=== PATIENT | female | born 1995 | race Caucasian/White ===

== ENCOUNTER 2019-04-20 13:20 | Emergency (ER) | payer OTHER ==
[~2019-04-20] VITALS: Wt 66.0 kg
[~2019-04-20 13:20] MED LIST: ONDA4TAB35 PO; PRENAT PO
[2019-04-20 13:24] VITALS: BP 123/57; PULSE 85; RESP 18
--- NOTE | 2019-04-20 21:30 | ERD ---
ER Documentation Chief Complaint Chief Complaint VAG BLEEDING SINCE TODAY. EARLY . NO DISTRESS. NO N/V. HPI 24-year-old female who is G2, , last menstrual cycle of 12/02/2018 presenting to the emergency department complaining of vaginal bleeding which began this morning. She reports using 1 pad per day. She also reports pelvic cramping which is rated 2/10 in severity and intermittent. She denies any fevers, chills, abdominal pain, nausea, vomiting, or other symptoms at this time. ROS All systems reviewed and are negative except as per history of present illness. Medications Home Meds Active Scripts Multivit/Min/Fol Ac/Iron/Pren* ( S*) 1 Tab Tab, 1 TAB PO DAILY, #30 TAB Prov:MAYRA DAVE PA-C 04/10/16 Ondansetron Hcl* (Zofran* ODT) 4 mg -ODT Tab.disper, 4 MG PO Q6 PRN for NAUSEA AND/OR VOMITING, #30 TAB Prov:MAYRA DAVE PA-C 04/10/16 Allergies Allergies: Coded Allergies: No Known Allergy (Unverified , 04/20/19) PMhx/Soc Medical and Surgical Hx: pt denies Medical Hx, pt denies Surgical Hx Hx Alcohol Use: No Hx Substance Use: No Hx Tobacco Use: No Smoking Status: Never smoker FmHx Family History: No diabetes Physical Exam Vitals Vital Signs Date Temp Pulse Resp B/P (MAP) Pulse Ox O2 O2 Flow FiO2 Time Delivery Rate 04/20/19 98.2 85 18 123/57 98 13:24 (79) Physical Exam Const: No acute distress Head: Atraumatic Eyes: Normal Conjunctiva ENT: Normal External Ears, Nose and Mouth. Neck: Full range of motion. No meningismus. Resp: Clear to auscultation bilaterally Cardio: Regular rate and rhythm, no murmurs Abd: Soft, non tender, non distended. Normal bowel sounds. Mild subjective suprapubic tenderness palpation. No McBurney's point tenderness. No rebound tenderness or guarding. Skin: No petechiae or rashes Back: No midline or flank tenderness Ext: No cyanosis, or edema Neur: Awake and alert Psych: Normal Mood and Affect Result Diagram: 04/20/19 1438 04/20/19 1438 Results 24 hrs Laboratory Tests Test 04/20/19 14:18 04/20/19 14:38 Urine Color YELLOW Urine Clarity SLIGHTLY CLOUDY Urine pH 5.0 Urine Specific [place] 1.021 Urine Ketones NEGATIVE mg/dL Urine Nitrite NEGATIVE mg/dL Urine Bilirubin NEGATIVE mg/dL Urine Urobilinogen NEGATIVE mg/dL Urine Leukocyte Esterase NEGATIVE Migue/ul Urine Microscopic RBC 1 /HPF Urine Microscopic WBC 4 /HPF Urine Squamous Epithelial Cells FEW /HPF Urine Hemoglobin 3+ mg/dL Urine Glucose NEGATIVE mg/dL Urine Total Protein NEGATIVE mg/dl White Blood Count 11.9 10^3/ul Red Blood Count 4.77 10^6/ul Hemoglobin 8.9 g/dl Hematocrit 30.2 % Mean Corpuscular Volume 63.3 fl Mean Corpuscular Hemoglobin 18.7 pg Mean Corpuscular Hemoglobin Concent 29.5 g/dl Red Cell Distribution Width 19.9 % Platelet Count 345 10^3/UL Mean Platelet Volume 9.8 fl Immature Granulocytes % 0.300 % Neutrophils % 55.2 % Lymphocytes % 34.9 % Monocytes % 8.3 % Eosinophils % 0.7 % Basophils % 0.6 % Nucleated Red Blood Cells % 0.0 /100WBC Immature Granulocytes # 0.040 10^3/ul Neutrophils # 6.6 10^3/ul Lymphocytes # 4.1 10^3/ul Monocytes # 1.0 10^3/ul Eosinophils # 0.1 10^3/ul Basophils # 0.1 10^3/ul Nucleated Red Blood Cells # 0.0 10^3/ul Sodium Level 139 mmol/L Potassium Level 3.6 mmol/L Chloride Level 106 mmol/L Carbon Dioxide Level 24 mmol/L Anion Gap 9 Blood Urea Nitrogen 11 mg/dl Creatinine 0.50 mg/dl Est Glomerular Filtrat Rate mL/min > 60 mL/min Glucose Level 78 mg/dl Calcium Level 9.2 mg/dl Total Bilirubin 0.5 mg/dl Direct Bilirubin 0.00 mg/dl Indirect Bilirubin 0.5 mg/dl Aspartate Amino Transf (AST/SGOT) 23 IU/L Alanine Aminotransferase (ALT/SGPT) 25 IU/L Alkaline Phosphatase 69 IU/L Total Protein 7.9 g/dl Albumin 4.2 g/dl Globulin 3.70 g/dl Albumin/Globulin Ratio 1.13 Beta HCG, Quantitative 2291.4 mIU/ml [place] [id number] Radiology Main Line: [phone] DIAGNOSTIC IMAGING REPORT Patient: FAHAD SAINZ : 1995 Age: 24 Sex: F MR #: [id number] DOS: 04/20/19 1435 Ordering MD: ADINA MENDOZA PA-C Location: [facility] Room/Bed: PROCEDURE: US OB. CLINICAL INDICATION: Vaginal bleeding TECHNIQUE: Transabdominal and transvaginal views of the pelvis are available for review. COMPARISON: No prior studies are available for comparison. FINDINGS: There is a single intrauterine gestation with the crown-rump length measuring 0.4 cm, corresponding to a gestational age of 6 weeks and 1 day. The heart rate is noted at 119 bpm. The ovaries are normal in size and echogenicity. Normal Doppler flow is identified in both ovaries. The right ovary measures 3.1 x 1.4 x 2.6 cm. The left ovary measures 4.0 x 1.5 x 2.0 cm. There is a 1.8 cm corpus luteum cyst in the left ovary. There is no free fluid. RPTAT: AA IMPRESSION: Single live intrauterine with an estimated gestational age of 6 weeks and 1 day, based on ultrasound measurements. Small corpus luteum cyst in the left ovary. .Chip Green MD, MD Date Time Electronically viewed and signed by .Chip Green MD, MD on 04/20/2019 15:55 .S/ CC: ADINA MENDOZA PA-C [id number] Procedures/MDM 24-year-old female presents to the emergency department complaining of mild vaginal spotting and pelvic discomfort. Obstetrics ultrasound showed a live intrauterine with heart tones present. Beta hCG was consistent with term of . Urinalysis showed no evidence of urinary tract infection. 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 She was in agreement with the diagnosis, plan, need for follow-up, return precautions. Her questions and concerns were addressed prior to discharge. Departure Diagnosis: Primary Impression: Vaginal bleeding in patient at less than 20 weeks ges... Condition: Fair Patient Instructions: Bleeding During Early Additional Instructions: SPECIALIST: YOU HAVE A MEDICAL CONDITION WHICH REQUIRES YOU TO SEE A SPECIALIST WITHIN THE NEXT 1-2 DAYS. PLEASE FOLLOW UP WITH YOUR PRIMARY PHYSICIAN FOR REFFERAL.IF YOU DO NOT HAVE A PRIMARY CARE PHYSICIAN AND/OR YOU CAN NOT AFFORD TO SEE A PHYSICIAN THE FOLLOWING RESOURCES HAVE BEEN SUPPLIED TO YOU. IT IS YOUR RESPONSIBILITY TO BE SEEN BY THE SPECIALIST: ADINA MILLER PA-C Apr 20, 2019 21:30
== END 2019-04-20 16:57 | disposition home or self-care (01) ==
LOC: FTE 13:20
DX: O20.9 Hemorrhage in early pregnancy, unspecified (principal); R10.2 Pelvic and perineal pain; Z3A.01 Less than 8 weeks gestation of pregnancy
CPT/HCPCS: 36415; 76801; 76817; 80053; 81001; 84702; 85025; 86900; 86901; Z7502

== ENCOUNTER 2019-04-27 15:49 | Emergency (ER) | payer OTHER ==
[~2019-04-27] VITALS: Ht 149.9 cm; Wt 70.8 kg
[2019-04-27 15:54] VITALS: Ht 149.9 cm; Wt 70.8 kg
[2019-04-27] MEDS ORDERED: DOCU-144 PO (19:59)
[2019-04-27] MEDS ORDERED: FER325 PO (19:59)
[2019-04-27 20:29] VITALS: BP 133/93; PULSE 68; RESP 16
--- NOTE | 2019-04-27 21:33 | ERD ---
ER Documentation Chief Complaint Chief Complaint vaginal bleeding increase seen here last week 7wks preg, HPI History of Present Illness: 24-year-old female who denies a past medical history coming in today with complaint of vaginal bleeding that is increased since her last visit on 04/20/19 at [facility] emergency department. Patient also reporting left lower quadrant abdominal pain. Patient reports increased bleeding on 04/22/2019 that was consistent with her menstrual cycle as well as some clots. Patient reports passing a large clot yesterday the size of the lemon as well as lower abdominal cramping during that time. Patient denies any other associated symptoms. Patient reports using 4-5 pads per day At home pharmacological/nonpharmacological treatment for symptoms: Denies Denies social concerns; Denies recent foreign travel ROS All systems reviewed and are negative except as per history of present illness. Medications Home Meds Active Scripts Docusate Sodium* (Colace*) 100 Mg Capsule, 100 MG PO DAILY for prevent constipation, #30 CAP Prov:GRAYSON MUÑIZ NP 04/27/19 Ferrous Sulfate* (Ferrous Sulfate*) 325 Mg Tabec, 325 MG PO TID for anemia for 30 Days, TAB Prov:GRAYSON MUÑIZ NP 04/27/19 Multivit/Min/Fol Ac/Iron/Pren* ( S*) 1 Tab Tab, 1 TAB PO DAILY, #30 TAB Prov:MAYRA DAVE PA-C 04/10/16 Ondansetron Hcl* (Zofran* ODT) 4 mg -ODT Tab.disper, 4 MG PO Q6 PRN for NAUSEA AND/OR VOMITING, #30 TAB Prov:MAYRA DAVE PA-C 04/10/16 Allergies Allergies: Coded Allergies: No Known Allergy (Unverified , 04/20/19) PMhx/Soc History of Surgery: No Anesthesia Reaction: No Hx Neurological Disorder: No Hx Respiratory Disorders: No Hx Cardiac Disorders: No Hx Psychiatric Problems: No Hx Miscellaneous Medical Probl: No Hx Alcohol Use: No Hx Substance Use: No Hx Tobacco Use: No Smoking Status: Never smoker Physical Exam Vitals Vital Signs Date Temp Pulse Resp B/P (MAP) Pulse Ox O2 O2 Flow FiO2 Time Delivery Rate 04/27/19 98.2 68 16 133/93 98 Room Air 20:29 (106) 04/27/19 99.0 100 18 129/71 98 15:54 (90) Physical Exam Const: No acute distress Head: Atraumatic Eyes: Normal Conjunctiva ENT: Normal External Ears, Nose and Mouth. Neck: Full range of motion. No meningismus. Resp: Clear to auscultation bilaterally Cardio: Regular rate and rhythm, no murmurs Abd: Soft, suprapubic tenderness, non distended. Normal bowel sounds Skin: No petechiae or rashes Back: No midline or flank tenderness Ext: No cyanosis, or edema Neur: Awake and alert Psych: Normal Mood and Affect Vaginal exam deferred, patient refused Result Diagram: 04/27/19 1740 Results 24 hrs Laboratory Tests Test 04/27/19 17:35 04/27/19 17:40 Urine Color YELLOW Urine Clarity SLIGHTLY CLOUDY Urine pH 5.0 Urine Specific [place] 1.030 Urine Ketones NEGATIVE mg/dL Urine Nitrite NEGATIVE mg/dL Urine Bilirubin NEGATIVE mg/dL Urine Urobilinogen NEGATIVE mg/dL Urine Leukocyte Esterase NEGATIVE Migue/ul Urine Microscopic RBC > 182 /HPF Urine Microscopic WBC 7 /HPF Urine Squamous Epithelial Cells FEW /HPF Urine Mucus FEW /HPF Urine Hemoglobin 3+ mg/dL Urine Glucose NEGATIVE mg/dL Urine Total Protein NEGATIVE mg/dl White Blood Count 10.7 10^3/ul Red Blood Count 4.72 10^6/ul Hemoglobin 8.9 g/dl Hematocrit 31.0 % Mean Corpuscular Volume 65.7 fl Mean Corpuscular Hemoglobin 18.9 pg Mean Corpuscular Hemoglobin Concent 28.7 g/dl Red Cell Distribution Width 21.3 % Platelet Count 300 10^3/UL Mean Platelet Volume 9.4 fl Immature Granulocytes % 0.300 % Neutrophils % 60.7 % Lymphocytes % 30.6 % Monocytes % 7.0 % Eosinophils % 0.9 % Basophils % 0.5 % Nucleated Red Blood Cells % 0.0 /100WBC Immature Granulocytes # 0.030 10^3/ul Neutrophils # 6.5 10^3/ul Lymphocytes # 3.3 10^3/ul Monocytes # 0.8 10^3/ul Eosinophils # 0.1 10^3/ul Basophils # 0.1 10^3/ul Nucleated Red Blood Cells # 0.0 10^3/ul Beta HCG, Quantitative 516.0 mIU/ml Procedures/MDM ED course includes a thorough examination and history. Medications: Imaging: OB transvaginal and abdominal ultrasound Labs: CBC, Rh, beta quantitative, urinalysis Low suspicion for life-threatening medical emergency. 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 CBC: no e/o of systemic infection; anemia noted with H/H at 8.9/31. Rh is a positive. Beta quantitative is 516. Urinalysis negative for infection; positive for hemoglobin and RBCs likely due to vaginal bleeding. Ultrasound results showing: IMPRESSION: 1. Previously seen intrauterine gestational sac no longer visualized. Findings are compatible with complete . Recommend correlation with serial Beta HCG measurements. 2. Unremarkable ovaries. 3. No free pelvic fluid. RPTAT:HAJM Physician Julio C Date Time Electronically viewed and signed by Physician Julio C on 04/27/2019 18:51 Patient reassessment 2000: Patient hemodynamically stable. Patient emotional and crying and labs and imaging results discussed. Reassurance provided. No respiratory distress, otherwise relatively well appearing and nontoxic. Disposition given. Patient educated on diagnoses, prescriptions, follow-up care, return precautions. Strict return precautions given for worsening condition; questions answered discharge. Nurse at bedside to assist. Patient verbalizes understanding of, results, return precautions, follow-up care. Disposition for discharge with followup in 2 days with PCP/clinic. Departure Diagnosis: Primary Impression: Miscarriage Condition: Stable Patient Instructions: Miscarriage, Spontaneous (Completed) Referrals: COMMUNITY CLINICS YOU HAVE RECEIVED A MEDICAL SCREENING EXAM AND THE RESULTS INDICATE THAT YOU DO NOT HAVE A CONDITION THAT REQUIRES URGENT TREATMENT IN THE EMERGENCY DEPARTMENT. FURTHER EVALUATION AND TREATMENT OF YOUR CONDITION CAN WAIT UNTIL YOU ARE SEEN IN YOUR DOCTORS OFFICE WITHIN THE NEXT 1-2 DAYS. IT IS YOUR RESPONSIBILITY TO MAKE AN APPOINTMENT FOR FOLOW-UP CARE. IF YOU HAVE A PRIMARY DOCTOR --you should call your primary doctor and schedule an appointment IF YOU DO NOT HAVE A PRIMARY DOCTOR YOU CAN CALL OUR PHYSICIAN REFERRAL HOTLINE AT IF YOU CAN NOT AFFORD TO SEE A PHYSICIAN YOU CAN CHOSE FROM THE FOLLOWING [facility] CLINICS [facility] [address] [facility] [address] [facility] [address] [facility]. [facility] [address] [facility] [phone] [facility]. [facility] [phone] [facility]. [facility] [address] [facility]. [facility] YOU HAVE RECEIVED A MEDICAL SCREENING EXAM AND THE RESULTS INDICATE THAT YOU DO NOT HAVE A CONDITION THAT REQUIRES URGENT TREATMENT IN THE EMERGENCY DEPARTMENT. FURTHER EVALUATION AND TREATMENT OF YOUR CONDITION CAN WAIT UNTIL YOU ARE SEEN IN YOUR DOCTORS OFFICE WITHIN THE NEXT 1-2 DAYS. IT IS YOUR RESPONSIBILITY TO MAKE AN APPOINTMENT FOR FOLOW-UP CARE. IF YOU HAVE A PRIMARY DOCTOR --you should call your primary doctor and schedule and appointment IF YOU DO NOT HAVE A PRIMARY DOCTOR YOU CAN CALL OUR PHYSICIAN REFERRAL HOTLINE AT . IF YOU CAN NOT AFFORD TO SEE A PHYSICIAN YOU CAN CHOSE FROM THE FOLLOWING [facility] INSTITUTIONS: [facility] [address] [place] [address] [facility] [address] [place] [address] [facility] [address] [place] [address] [employer] OPEN STACK ADMINISTR[place] [address] [facility] [address] [place], [place] [phone] OFFICE FAX , [place] [address] [place] [address] [address]. MON, [place] [address] [place], [place] [phone] DR JARVIS, [facility] [address] [facility], [address] [address] [address] [address] [place] [place] [phone] [facility] [address] [place] [address] [address] [facility] [id number] - [place] [address], [facility] [address] [address] RUBIO, CORIE [address] [facility]. [address], [facility] [address] [address] [facility] [address] [place], [place] [phone] Additional Instructions: Thank you very much for allowing us to participate in your care. Your health and safety is our top priority at [facility]. It is important to read all discharge instructions and education provided in your discharge packet. Call your primary care doctor TOMORROW for an appointment during the next 2-4 days and bring all the information and medications prescribed. Have prescriptions filled and follow precisely the directions on the label. -Ferrous sulfate is a iron supplement that will help with anemia due to blood loss. Take this medication as prescribed. -Docusate/Colace as a stool softener. Take this medication to prevent constipation. Iron supplements can cause constipation. If the symptoms get worse and your provider is unavailable, return to the Emerge ncy Department immediately. GRAYSON MUÑIZ NP Apr 27, 2019 21:33
== END 2019-04-27 20:28 | disposition home or self-care (01) ==
LOC: FTE 15:49
DX: O03.9 Complete or unspecified spontaneous abortion without complication (principal)
CPT/HCPCS: 36415; 76801; 76817; 81001; 84702; 85025; 86900; 86901; Z7502

== ENCOUNTER 2019-07-27 08:26 | Emergency (ER) | payer OTHER ==
[~2019-07-27] VITALS: Ht 160 cm; Wt 72.0 kg
[~2019-07-27 08:26] MED LIST changes: +DOCU-144 PO; +FER325 PO; +METO10TA92 PO
[2019-07-27 08:28] VITALS: BP 115/60; PULSE 76; RESP 18; Ht 160 cm; Wt 72.0 kg
[2019-07-27] MEDS ORDERED: LIDOCAINE/MYLANTA 40 ML BTL PO ONE (09:00)
== END 2019-07-27 10:56 | disposition home or self-care (01) ==
LOC: FTE 08:26
DX: R10.9 Unspecified abdominal pain (principal); R11.0 Nausea; Z33.1 Pregnant state, incidental
CPT/HCPCS: 76705; 76801; 80053; 81003; 81025; 83690; 84702; 85025; 86900; 86901; Z7502; Z7610